=== PATIENT | male | born 1975 | race Caucasian/White ===

== ENCOUNTER 2024-07-18 15:09 | Observation (INO) | payer BC, OTHER ==
[2024-07-18] MEDS ORDERED: diphenhydrAMINE 50 MG/ML VIAL ONE (15:56)
[2024-07-18] MEDS ORDERED: Ketorolac Tromethamine 30 MG (1 mL) VIAL ONE (15:57)
[2024-07-18] MEDS ORDERED: Metoclopramide HCl 10 MG (2 mL) VIAL ONE (15:57)
[2024-07-18] MEDS ORDERED: DEXTROSE 5% IVPB SCH (16:15)
[2024-07-18] MEDS ORDERED: [UNRECOGNIZED DRUG - OTHER] IVPB SCH (16:15)
[2024-07-18] MEDS ORDERED: ADMIXTURE FEE CHEMO IVPB SCH (16:15)
[2024-07-18] MEDS ORDERED: CAFFEINE IVPB SCH (16:15)
[2024-07-18] MEDS ORDERED: SODIUM BENZOATE IVPB SCH (16:15)
[2024-07-18] MEDS ORDERED: Ondansetron PF 4 MG/2 ML Vial IVP PRN (20:53)
[2024-07-18] MEDS: Ketorolac Tromethamine 30 MG (1 mL) VIAL IVP PRN (23:15)
[2024-07-18] MEDS: traMADol HCl 50 MG TAB PO PRN (23:16)
[2024-07-18] MEDS: CAFFEINE IVPB SCH (23:45)
[2024-07-18] MEDS: ADMIXTURE FEE CHEMO IVPB SCH (23:45)
[2024-07-18] MEDS: DEXTROSE 5% IVPB SCH (23:45)
[2024-07-18] MEDS: SODIUM BENZOATE IVPB SCH (23:45)
[2024-07-18] MEDS: [UNRECOGNIZED DRUG - OTHER] IVPB SCH (23:45)
[2024-07-19 05:26] LABS: #Basophils 0.03 10x3/uL (0.0-0.2); %Basophils 0.3 % (0.0-1.0); %Eosinophils 0.9 % (0.0-10.0); %Lymphocytes 32.3 % (21.0-51.0); %Monocytes 12.3 % (0.0-10.0); %Neutrophils 53.5 % (42.0-75.0); Hematocrit 40.4 % (42.0-52.0); Hemoglobin 13.6 g/dL (14.0-18.0); Mean Corpuscular HGB CONC 33.7 g/dL (32.0-36.0); Mean Corpuscular Hemoglobin 31.6 pg (27.0-31.0); Mean Platelet Volume 9.7 fL (7.4-10.4); Platelet Count 322 10x3/uL (130-400); RBC Distribution Width 12.2 % (11.5-14.5)
[2024-07-19 05:35] LABS: Anion Gap 12 mmol/L (10-20); BUN (Urea Nitrogen) 17 mg/dL (8.9-20.6); Calc. Creatinine Clearance 0 mL/min (70-130); Carbon Dioxide 26 mmol/L (22-29); Chloride 105 mmol/L (98-107); Estimated GFR 92; Glucose 96 mg/dL (70-105); Potassium 5.3 mmol/L (3.5-5.1); Sodium 138 mmol/L (136-145)
[2024-07-19] MEDS: hydrALAZINE 20 MG/ML VIAL SLOW IVP PRN (07:03)
[2024-07-19 07:38] VITALS: BMI 26.4
[2024-07-19] MEDS: Fioricet 325/50/40 mg Tablet PO SCH (12:09)
[2024-07-19] MEDS: hydrALAZINE 20 MG/ML VIAL SLOW IVP SCH (12:10)
[2024-07-19 13:36] LABS: Potassium 3.5 mmol/L (3.5-5.1)
[2024-07-19] MEDS: Acetaminophen 325 MG TAB PO PRN (14:26)
[2024-07-19] MEDS: Loratadine 10 MG TAB PO PRN (16:31)
[2024-07-19] MEDS: Fioricet 325/50/40 mg Tablet PO PRN (18:33)
[2024-07-20 08:07] VITALS: BP 146/99; TEMP 97.6
== END 2024-07-20 10:34 | disposition home or self-care (01) ==
LOC: ERS 15:09 → T4-B 20:57
PROVIDERS: ADMIT Internal Medicine; ATTEND Family Medicine
DX: G97.1 Other reaction to spinal and lumbar puncture (principal); M54.9 Dorsalgia, unspecified; G89.29 Other chronic pain; E87.6 Hypokalemia; R03.0 Elevated blood-pressure reading, without diagnosis of hypertension; Z79.899 Other long term (current) drug therapy
CPT/HCPCS: 36415; 62272; 70450; 80048; 85025; 96375; 96376; G0378; J0360; J0706; J1200; J1885; J2765; J7070